=== PATIENT | male | born 1975 | race African-American/Black ===

== ENCOUNTER 2024-07-20 15:33 | Emergency (ER) | payer OTHER ==
[2024-07-20 15:39] VITALS: BP 159/97; PULSE 63; RESP 18; TEMP 97.5; BMI 31.8
[2024-07-20] MEDS ORDERED: ACETAMINOPHEN 500 MG TABLET (FP) ONE (16:59)
[2024-07-20] MEDS ORDERED: KETOROLAC TROMETHAMINE 30 MG/1 ML VIAL ONE (16:59)
[2024-07-20] MEDS ORDERED: LIDOCAINE 4% PATCH TP ONE (16:59)
[2024-07-20] MEDS: KETOROLAC TROMETHAMINE 30 MG/1 ML VIAL IM ONE (17:04)
[2024-07-20] MEDS: LIDOCAINE 4% PATCH TP ONE (17:04)
[2024-07-20] MEDS: ACETAMINOPHEN 500 MG TABLET (FP) PO ONE (17:04)
[2024-07-20] MEDS ORDERED: LIDOCAINE PATCH REMOVAL MC SCH (22:00)
== END 2024-07-20 17:20 | disposition home or self-care (01) ==
LOC: JERFT 15:33
PROC: 3E0133Z Introduction of Anti-inflammatory into Subcutaneous Tissue, Percutaneous Approach (ICD-10-PCS; principal; 2024-07-20)
DX: M54.50 Low back pain, unspecified (principal)
CPT/HCPCS: 99284-25